=== PATIENT | male | born 1995 | race Two or more races ===

== ENCOUNTER 2017-06-26 10:55 | Emergency (ER) | payer BC, OTHER ==
[~2017-06-26] VITALS: Ht 185.4 cm; Wt 139.2 kg
[2017-06-26 11:57] VITALS: BP 132/81
== END 2017-06-26 11:58 | disposition home or self-care (01) ==
LOC: M ED 10:55
DX: L03.031 Cellulitis of right toe (principal)

== ENCOUNTER 2020-05-17 17:30 | Emergency (ER) | payer OTHER ==
[~2020-05-17] VITALS: Ht 185.4 cm; Wt 146.6 kg
[2020-05-17 17:31] VITALS: BP 131/72
[2020-05-17] MEDS ORDERED: CLAR10CA3 PO (18:11)
[2020-05-17] MEDS ORDERED: ONDA4TAB6 PO (18:11)
[2020-05-17] MEDS ORDERED: ONDANSETRON 4 MG ORAL DISINTEGRATING TAB PO ONE (18:15)
== END 2020-05-17 18:29 | disposition home or self-care (01) ==
LOC: M ED 17:30
DX: R11.0 Nausea (principal); J30.9 Allergic rhinitis, unspecified; F17.218 Nicotine dependence, cigarettes, with other nicotine-induced disorders; F90.9 Attention-deficit hyperactivity disorder, unspecified type; Z88.0 Allergy status to penicillin; Z88.2 Allergy status to sulfonamides
CPT/HCPCS: 99283; Q0162

== ENCOUNTER 2022-03-26 17:19 | Emergency (ER) | payer OTHER ==
[~2022-03-26] VITALS: Ht 185.4 cm; Wt 136.4 kg
[~2022-03-26 17:19] MED LIST: CLAR10CA3 PO; ONDA4TAB6 PO
[2022-03-26 17:20] VITALS: BP 138/79
== END 2022-03-26 22:00 | disposition left against medical advice (07) ==
LOC: M ED 21:59
DX: Z53.21 Procedure and treatment not carried out due to patient leaving prior to being seen by health care provider (principal)

== ENCOUNTER 2024-07-08 00:28 | Emergency (ER) | payer OTHER ==
[~2024-07-08] VITALS: Ht 188 cm; Wt 152.8 kg
[~2024-07-08 00:28] MED LIST changes: +ONDA-282 PO; -ONDA4TAB6 PO
[2024-07-08 05:58] VITALS: BP 154/89; TEMP 98.4; O2SAT 98
== END 2024-07-08 06:05 | disposition home or self-care (01) ==
LOC: M ED 00:28
DX: S09.90XA Unspecified injury of head, initial encounter (principal); Y04.8XXA Assault by other bodily force, initial encounter; F17.200 Nicotine dependence, unspecified, uncomplicated; F10.10 Alcohol abuse, uncomplicated; Y92.9 Unspecified place or not applicable; Y93.89 Activity, other specified; Y99.0 Civilian activity done for income or pay; Z88.0 Allergy status to penicillin; Z88.2 Allergy status to sulfonamides; Z79.83 Long term (current) use of bisphosphonates; Z79.899 Other long term (current) drug therapy